=== PATIENT | male | born 1970 | race Two or more races ===

== ENCOUNTER 2022-12-15 10:31 | Emergency (ER) | payer BC, MEDICAID, OTHER ==
[~2022-12-15] VITALS: Ht 172.7 cm; Wt 84.8 kg
[2022-12-15] MEDS ORDERED: KETOROLAC TROMETHAMINE INJ 30 MG/ML VIAL ONE (12:43)
[2022-12-15] MEDS ORDERED: KETOROLAC TROMETHAMINE INJ 60 MG/2 ML VIAL IM ONE (13:00)
[2022-12-15] MEDS ORDERED: TRAM50TA2 PO (13:58)
[2022-12-15 14:22] VITALS: BP 131/87; TEMP 98.1; O2SAT 100
== END 2022-12-15 14:23 | disposition home or self-care (01) ==
LOC: ER 10:37
DX: S22.41XA Multiple fractures of ribs, right side, initial encounter for closed fracture (principal); S09.8XXA Other specified injuries of head, initial encounter; W18.09XA Striking against other object with subsequent fall, initial encounter; Y93.89 Activity, other specified; Y92.89 Other specified places as the place of occurrence of the external cause; Y99.8 Other external cause status
CPT/HCPCS: 99285; 70450; 96372; 71100; J1885